=== PATIENT | female | born 1970 | race American Indian/Alaskan Native ===

== ENCOUNTER 2017-01-12 13:06 | Emergency (ER) | payer MEDICARE ==
[2017-01-12 14:24] LABS: Urine Drugs of Abuse Note Disclamer
[2017-01-12 14:25] LABS: Anion Gap 18 mmol/L; BUN/Creatinine Ratio 18.57; Blood Urea Nitrogen 13 mg/dL (7-17); Carbon Dioxide 24 mmol/L (22-30); Chloride 100.3 mmol/L (98-107); Glucose 96 mg/dL (65-100); Sodium 138 mmol/L (137-145)
[2017-01-12 14:28] LABS: Basophils % (Auto) 0.7 % (0.0-1.8); Eosinophils % (Auto) 1.4 % (0.0-4.3); Hematocrit 26.9 % (30.3-42.9); Hemoglobin 8.5 gm/dl (10.1-14.3); Mean Corpuscular HGB Conc 32 % (30-34); Mean Corpuscular Hemoglobin 23 pg (28-32); Mean Corpuscular Volume 71 fl (79-97); Platelet Count 364 K/mm3 (140-440); Red Blood Count 3.77 M/mm3 (3.65-5.03); Red Cell Distribution Width 20.2 % (13.2-15.2); White Blood Count 6.2 K/mm3 (4.5-11.0)
[2017-01-12 14:38] LABS: Bilirubin,Urine NEG (Negative); Blood,Urine NEG (Negative); Ketones,Urine NEG (Negative); Leukocyte Esterase,Urine NEG (Negative); Mucus,Urine FEW /HPF; Nitrite,Urine NEG (Negative); Protein,Urine <15 mg/dL mg/dL (Negative); Urobilinogen,Urine < 2.0 mg/dL (<2.0)
[2017-01-12] MEDS ORDERED: COLACE PO ONE (23:30)
[2017-01-13] MEDS: FEOSOL PO SCH ×2 (00:04→10:22)
--- NOTE | 2017-01-13 04:17 | Emergency Department Report ---
ED Psych HPI - General Chief Complaint: Psych Stated Complaint: MH EVAL/NOT TAKING MEDS Time Seen by Provider: 01/12/17 21:06 Source: patient Mode of arrival: Ambulatory Limitations: Other (mental disorder) - History of Present Illness Initial Comments: 36 year old female with a past medical history of schizophrenia, seizures, and hypertension presents to Hospital complaints of uncooperative behavior. Patient is in the presence of her retail personal banker at the [facility]. She was released from [facility] December 28. Since she has been refusing to take her medication, curative things, and defecating on herself. No physical complaints reported. Patient denies suicidal or homicidal ideation. - Related Data Home Medications Medication Instructions Recorded Confirmed Last Taken Amantadine [Symmetrel] 100 mg PO BID 01/12/17 01/12/17 Unknown Divalproex Sodium [Divalproex 500 mg PO BID 01/12/17 01/12/17 Unknown Sodium ER] Hydrochlorothiazide [HCTZ] 25 mg PO QDAY 01/12/17 01/12/17 Unknown Olanzapine [ZyPREXA] 15 mg PO BID 01/12/17 01/12/17 Unknown Allergies Allergy/AdvReac Type Severity Reaction Status Date / Time Beef Containing Products Allergy Vomiting Verified 12/10/15 19:38 latex Allergy Swelling Verified 12/10/15 19:38 Penicillins Allergy Unknown Verified 12/10/15 19:38 ED Review of Systems ROS: Stated complaint: MH EVAL/NOT TAKING MEDS Other details as noted in HPI Comment: All other systems reviewed and negative Other: Constitutional: No fevers chills Eyes: No eye pain visual changes ENT: No ear pain or throat pain Neck: Denies pain Respiratory: Denies cough wheezing shortness of breath Cardiovascular: Denies chest pain, palpitations, syncope GI: Denies abdominal pain, nausea, vomiting, diarrhea : Denies dysuria Musculoskeletal: no joint swelling Skin: Denies rash, lesions, erythema Neurologic: Denies headache, numbness, weakness ED Past Medical Hx - Past Medical History Hx Hypertension: Yes Hx Seizures: Yes Hx Psychiatric Treatment: Yes (schizophrenia) - Surgical History Additional Surgical History: gastrobypass - Social History Smoking Status: Current Every Day Smoker Substance Use Type: Alcohol - Medications Home Medications: Home Medications Medication Instructions Recorded Confirmed Last Taken Type Amantadine [Symmetrel] 100 mg PO BID 01/12/17 01/12/17 Unknown History Divalproex Sodium [Divalproex 500 mg PO BID 01/12/17 01/12/17 Unknown History Sodium ER] Hydrochlorothiazide [HCTZ] 25 mg PO QDAY 01/12/17 01/12/17 Unknown History Olanzapine [ZyPREXA] 15 mg PO BID 01/12/17 01/12/17 Unknown History ED Physical Exam - General Limitations: No Limitations - Other Other exam information: General: No limitations, patient is alert in no acute distress Head exam: Atraumatic, normocephalic Eyes exam: Normal appearance, pupils equal reactive to light, extraocular movements intact ENT: Moist mucous membrane, normal oropharynx Neck exam: Normal inspection, full range of motion, no meningismus nontender Respiratory exam: Clear to auscultation bilateral, no wheezes, rales, crackles Cardiovascular: Normal rate and rhythm, normal heart sounds Abdomen: Soft, nondistended, and nontender, with normal bowel sounds, no rebound, or guarding Extremity: Full range of motion normal inspection no deformity Back: Normal Inspection, full range of motion, no tenderness Neurologic: Alert, oriented x3, cranial nerves intact, no motor or sensory deficit Psychiatric: normal affect, normal mood Skin: Warm, dry, intact ED Course Vital Signs 01/12/17 01/12/17 13:45 21:26 Temperature 99 F 98.8 F Pulse Rate 123 H 99 H Respiratory 20 20 Rate Blood Pressure 125/80 Blood Pressure 159/90 [Left] O2 Sat by Pulse 99 98 Oximetry - Reevaluation(s) Reevaluation #1: 01/13/17 Repeat heart rate improved ED Medical Decision Making - Lab Data Result diagrams: 01/12/17 13:52 01/12/17 13:52 Lab Results 01/12/17 01/12/17 01/12/17 Range/Units 13:52 13:52 13:52 WBC 6.2 (4.5-11.0) K/mm3 RBC 3.77 (3.65-5.03) M/mm3 Hgb 8.5 L (10.1-14.3) gm/dl Hct 26.9 L (30.3-42.9) % MCV 71 L (79-97) fl MCH 23 L (28-32) pg MCHC 32 (30-34) % RDW 20.2 H (13.2-15.2) % Plt Count 364 (140-440) K/mm3 Lymph % (Auto) 20.7 (13.4-35.0) % Divide % (Auto) 12.1 H (0.0-7.3) % Eos % (Auto) 1.4 (0.0-4.3) % Baso % (Auto) 0.7 (0.0-1.8) % Lymph # 1.3 (1.2-5.4) K/mm3 Divide # 0.7 (0.0-0.8) K/mm3 Eos # 0.1 (0.0-0.4) K/mm3 Baso # 0.0 (0.0-0.1) K/mm3 Seg Neutrophils % 65.1 (40.0-70.0) % Seg Neutrophils # 4.0 (1.8-7.7) K/mm3 Sodium 138 (137-145) mmol/L Potassium 4.0 (3.6-5.0) mmol/L Chloride 100.3 (98-107) mmol/L Carbon Dioxide 24 (22-30) mmol/L Anion Gap 18 mmol/L BUN 13 (7-17) mg/dL Creatinine 0.7 (0.7-1.2) mg/dL Estimated GFR > 60 ml/min BUN/Creatinine Ratio 18.57 % Glucose 96 (65-100) mg/dL Calcium 9.0 (8.4-10.2) mg/dL Iron (37-170) ug/dL TIBC (250-450) mcg/dL % Saturation % Transferrin (192-382) mg/dl Urine Color (Yellow) Urine Turbidity (Clear) Urine pH (5.0-7.0) Ur Specific Van (1.003-1.030) Urine Protein (Negative) mg/dL Urine Glucose (UA) (Negative) mg/dL Urine Ketones (Negative) mg/dL Urine Blood (Negative) Urine Nitrite (Negative) Urine Bilirubin (Negative) Urine Urobilinogen (<2.0) mg/dL Ur Leukocyte Esterase (Negative) Urine WBC (Auto) (0.0-6.0) /HPF Urine RBC (Auto) (0.0-6.0) /HPF U Epithel Cells (Auto) (0-13.0) /HPF Urine Mucus /HPF Urine Opiates Screen Urine Methadone Screen Ur Barbiturates Screen Ur Phencyclidine Scrn Ur Amphetamines Screen U Benzodiazepines Scrn Urine Cocaine Screen U Marijuana (THC) Screen Drugs of Abuse Note Plasma/Serum Alcohol < 0.01 (0-0.07) gm% 01/12/17 01/12/17 01/12/17 Range/Units 13:52 Unknown Unknown WBC (4.5-11.0) K/mm3 RBC (3.65-5.03) M/mm3 Hgb (10.1-14.3) gm/dl Hct (30.3-42.9) % MCV (79-97) fl MCH (28-32) pg MCHC (30-34) % RDW (13.2-15.2) % Plt Count (140-440) K/mm3 Lymph % (Auto) (13.4-35.0) % Divide % (Auto) (0.0-7.3) % Eos % (Auto) (0.0-4.3) % Baso % (Auto) (0.0-1.8) % Lymph # (1.2-5.4) K/mm3 Divide # (0.0-0.8) K/mm3 Eos # (0.0-0.4) K/mm3 Baso # (0.0-0.1) K/mm3 Seg Neutrophils % (40.0-70.0) % Seg Neutrophils # (1.8-7.7) K/mm3 Sodium (137-145) mmol/L Potassium (3.6-5.0) mmol/L Chloride (98-107) mmol/L Carbon Dioxide (22-30) mmol/L Anion Gap mmol/L BUN (7-17) mg/dL Creatinine (0.7-1.2) mg/dL Estimated GFR ml/min BUN/Creatinine Ratio % Glucose (65-100) mg/dL Calcium (8.4-10.2) mg/dL Iron 16 L (37-170) ug/dL TIBC 487 H (250-450) mcg/dL % Saturation 3.29 % Transferrin 428 H (192-382) mg/dl Urine Color Yellow (Yellow) Urine Turbidity Clear (Clear) Urine pH 5.0 (5.0-7.0) Ur Specific Van 1.014 (1.003-1.030) Urine Protein <15 mg/dl (Negative) mg/dL Urine Glucose (UA) Neg (Negative) mg/dL Urine Ketones Neg (Negative) mg/dL Urine Blood Neg (Negative) Urine Nitrite Neg (Negative) Urine Bilirubin Neg (Negative) Urine Urobilinogen < 2.0 (<2.0) mg/dL Ur Leukocyte Esterase Neg (Negative) Urine WBC (Auto) 1.0 (0.0-6.0) /HPF Urine RBC (Auto) 5.0 (0.0-6.0) /HPF U Epithel Cells (Auto) 2.0 (0-13.0) /HPF Urine Mucus Few /HPF Urine Opiates Screen Presumptive negative Urine Methadone Screen Presumptive negative Ur Barbiturates Screen Presumptive negative Ur Phencyclidine Scrn Presumptive negative Ur Amphetamines Screen Presumptive negative U Benzodiazepines Scrn Presumptive negative Urine Cocaine Screen Presumptive negative U Marijuana (THC) Screen Presumptive negative Drugs of Abuse Note Disclamer Plasma/Serum Alcohol (0-0.07) gm% - Medical Decision Making 1013 and transfer forms have been signed. Patient medically clear for psychiatric transfer. Her current medications be continued. Patient also has iron deficiency anemia and iron tablets for Colace have been initiated. H&H is stable compared to previous. - Differential Diagnosis psychosis, schizophrenia, medication noncompliance Critical Care Time: No Critical care attestation.: If time is entered above; I have spent that time in minutes in the direct care of this critically ill patient, excluding procedure time. ED Disposition Clinical Impression: Schizophrenia, Noncompliance with medication regimen, Medical clearance for psychiatric admission, Iron deficiency anemia Disposition: DC/TX-65 PSY HOSP/PSY UNIT Is pt being admited?: No Condition: Stable Time of Disposition: 04:53 (awaiting acceptance)
[2017-01-13] MEDS: HCTZ PO SCH (10:22)
[2017-01-13] MEDS: TYLENOL PO PRN (10:22)
[2017-01-13] MEDS: SYMMETREL PO SCH ×2 (13:24→23:11)
--- NOTE | 2017-01-13 16:29 | Consultation ---
History of Present Illness - Reason for Consult Consult date: 01/13/17 Reason for consult: psychiatric evaluation, psychosis - Chief Complaint Chief complaint: "I want something else [to eat]" 36 year old female with a past medical history of schizophrenia, seizures, and hypertension presented to the ER with complaints of uncooperative behavior. She lives in a [facility] and has been non compliant with medication and displaying signs of psychosis. She was released from [facility] December 28. Since she has been refusing to take her medication, pacing, displaying disorganized thoughts/behavior, and defecating on herself. She is indifferent on interview. No physical complaints reported. Patient denies suicidal or homicidal ideation. Medications and Allergies Allergies Allergy/AdvReac Type Severity Reaction Status Date / Time Beef Containing Products Allergy Vomiting Verified 12/10/15 19:38 latex Allergy Swelling Verified 12/10/15 19:38 Penicillins Allergy Unknown Verified 12/10/15 19:38 Home Medications Medication Instructions Recorded Confirmed Last Taken Type Amantadine [Symmetrel] 100 mg PO BID 01/12/17 01/12/17 Unknown History Divalproex Sodium [Divalproex 500 mg PO BID 01/12/17 01/12/17 Unknown History Sodium ER] Hydrochlorothiazide [HCTZ] 25 mg PO QDAY 01/12/17 01/12/17 Unknown History Olanzapine [ZyPREXA] 15 mg PO BID 01/12/17 01/12/17 Unknown History Active Meds: Active Medications Acetaminophen (Tylenol) 650 mg PO Q4HR PRN PRN Reason: Pain MILD(1-3)/Fever >100.5/ARRIOLA Last Admin: 01/13/17 10:22 Dose: 650 mg Amantadine HCl (Symmetrel) 100 mg PO BID [facility] Last Admin: 01/13/17 13:24 Dose: Not Given Divalproex Sodium (Depakote Er) 500 mg PO BID [facility] Last Admin: 01/13/17 10:22 Dose: Not Given Ferrous Sulfate (Feosol) 325 mg PO DAILY [facility] Last Admin: 01/13/17 10:22 Dose: 325 mg Hydrochlorothiazide (Hctz) 25 mg PO QDAY [facility] Last Admin: 01/13/17 10:22 Dose: 25 mg Olanzapine (Zyprexa) 15 mg PO BID [facility] Last Admin: 01/13/17 13:25 Dose: Not Given Past psychiatric history - Past Medical History Past Medical History: hypertension, seizures Past Surgical History: Other (gastric bypass per the record) - past Psychiatric treatment and history Psych: Schizophrenia psychiatric treatment history: home medications: zyprexa 15mg bid and depakote - Social History Social history: other (denies alcohol or illicit substance use) Mental Status Exam - Vital signs Last Vital Signs Temp 98.9 F 01/13/17 07:35 Pulse 96 H 01/13/17 07:35 Resp 18 01/13/17 10:22 BP 147/91 01/13/17 07:35 Pulse Ox 100 01/13/17 07:35 Results Result Diagrams: 01/12/17 13:52 01/12/17 13:52 Abnormal lab results 01/12/17 Range/Units 13:52 Iron 16 L (37-170) ug/dL TIBC 487 H (250-450) mcg/dL Transferrin 428 H (192-382) mg/dl All other labs normal. Assessment and Plan Assessment and plan: Mental Status Exam: Narrative exam: Patient indifferent and not fully cooperative on interview Orientation: person, place Affect: flat Mood: unknown Thought content: no SI or HI Thought process: disorganized Perceptions: responding to internal stimuli Speech: minimal response Level of consciousness: alert Psychomotor activity: pacing Interaction: uncooperative Impression: Psychosis Schizophrenia, unspecified type Differential diagnosis: schizoaffective disorder, bipolar disorder Recommendation: Reevaluate in one day to determine if patient is cooperative and can provide more information about the presenting complaint and psychiatric history. [address] No changes in care recommended at this time. Her home medications have been restarted by the ER physician. Zyprexa 15mg bid and Depakote 500mg bid She would benefit from a long acting antipsychotic
[2017-01-14] MEDS: HCTZ PO SCH (10:39)
[2017-01-14] MEDS: FEOSOL PO SCH (10:39)
[2017-01-14] MEDS: SYMMETREL PO SCH ×2 (10:39→23:59)
[2017-01-14] MEDS ORDERED: GEODON IM ONE ×2 (13:06→13:07)
--- NOTE | 2017-01-14 19:42 | Progress Note ---
Subjective - Reason for Consult Consult date: 01/14/17 Reason for consult: follow up - Chief Complaint Chief complaint: "Do you have a sandwich?" 36 year old female with a past medical history of schizophrenia, seizures, and hypertension presented to the ER with complaints of uncooperative behavior. She lives in a skilled nursing and has been non compliant with medication and displaying signs of psychosis. She was released from [facility] December 28. She continues to have disorganized thought process. She is rocking but states it is because she is hungry. She attributes her hunger to her medication. She is on Zyprexa. She mentioned being on Invega in the past. She stated her medications aren't right but she otherwise does not have insight. She is indifferent on interview. She denies psychotic symptoms but exhibits signs of psychosis. Patient denies suicidal or homicidal ideation. Mental Status Exam - Vital signs Last Vital Signs Temp 98.8 F 01/14/17 09:20 Pulse 70 01/14/17 15:14 Resp 18 01/14/17 15:14 BP 154/80 01/14/17 15:14 Pulse Ox 100 01/14/17 15:14 Assessment and Plan Mental Status Exam: Narrative exam: focused on obtaining a snack Orientation: person, place Affect: flat Mood: unknown Thought content: no SI or HI Thought process: disorganized Perceptions: responding to internal stimuli Speech: minimal response Level of consciousness: alert Psychomotor activity: rocking Interaction: unable to pay attention Impression: Psychosis Schizophrenia, unspecified type Differential diagnosis: schizoaffective disorder, bipolar disorder Recommendation: She is waiting on a bed in a psychiatric facility. [address] No changes in care recommended at this time. Her home medications have been restarted by the ER physician. Zyprexa 15mg bid and Depakote 500mg bid She would benefit from a long acting antipsychotic and a newer atypical antipsychotic to reduce metabolic effects.
[2017-01-14] MEDS: TYLENOL PO PRN (21:47)
[2017-01-15] MEDS: HCTZ PO SCH (10:51)
[2017-01-15] MEDS: SYMMETREL PO SCH ×2 (10:52→22:54)
[2017-01-15] MEDS: FEOSOL PO SCH (11:22)
--- NOTE | 2017-01-15 17:08 | Progress Note ---
Subjective - Reason for Consult Consult date: 01/15/17 Reason for consult: Psychiatry Follow-up - Chief Complaint Chief complaint: "What do you want" 36 year old female with a past medical history of schizophrenia, seizures, and hypertension presented to the ER with complaints of uncooperative behavior. Today patient is calm, but uncooperative during assessment. She was rocking back /forth and talking to herself upon my arrival to her room. When I asked her a question, she stated, "Why are you talking to me." She would pause in the middle of her answers, possibly responding to some type or stimuli. She denies SI/HI's and AVH's. Mental Status Exam - Vital signs Last Vital Signs Temp 98.4 F 01/15/17 09:08 Pulse 76 01/15/17 10:48 Resp 16 01/15/17 10:48 BP 120/61 01/15/17 10:48 Pulse Ox 100 01/15/17 10:48 - Exam Narrative exam: MSE: Appearance: calm, uncooperative Behavior: regular eye contact Speech: regular rate and tone Mood: "why you ask" Affect: labile Thought Process: tangential Thought Content: denies SI/HI's and AVH's, disorganized Motor Activity: lying in bed Cognition: A/Ox 3 Insight: limited Judgment: limited Assessment and Plan Impression: Schizophrenia Unspecified Type. Today patient is calm, but uncooperative during assessment. Recommendation/Plan: Continue 1013 with placement to inpatient psy services. Continue Zyprexa 15 mg PO BID and Depakote 500 mg BID for mood. LFT's ordered.
[2017-01-15 18:22] LABS: Alanine Aminotransferase 9 units/L (7-56); Alkaline Phosphatase 52 units/L (35-129)
[2017-01-16] MEDS: HCTZ PO SCH (09:54)
[2017-01-16] MEDS: SYMMETREL PO SCH ×2 (09:54→22:30)
[2017-01-16] MEDS: FEOSOL PO SCH (09:54)
--- NOTE | 2017-01-16 14:17 | Progress Note ---
Subjective - Reason for Consult Consult date: 01/16/17 Reason for consult: Psychiatry Follow-up - Chief Complaint Chief complaint: "Yes" 36 year old female with a past medical history of schizophrenia, seizures, and hypertension presented to the ER with complaints of uncooperative behavior. Today patient is calm, but again uncooperative during assessment. She stated being in [place] currently. I told her that she was located at [facility], she stated , "You're a liar." She denies SI/HI's and AVH's. Mental Status Exam - Vital signs Last Vital Signs Temp 98.2 F 01/16/17 07:50 Pulse 105 H 01/16/17 07:50 Resp 20 01/16/17 07:50 BP 110/73 01/16/17 07:50 Pulse Ox 100 01/16/17 07:50 - Exam Narrative exam: MSE: Appearance: calm, uncooperative Behavior: regular eye contact Speech: regular rate and tone Mood: "okay today" Affect: labile Thought Process: tangential Thought Content: denies SI/HI's and AVH's, disorganized Motor Activity: lying in bed Cognition: A/Ox 3 Insight: limited Judgment: limited Assessment and Plan Impression: Schizophrenia Unspecified Type. Today patient is calm, but uncooperative again today during assessment. She denies SI/HI's. Recommendation/Plan: Continue 1013 with placement to inpatient psy services. Continue Zyprexa 15 mg PO BID and Depakote 500 mg BID for mood. VA serum level in the AM.
[2017-01-17] MEDS: FEOSOL PO SCH (10:49)
[2017-01-17] MEDS: SYMMETREL PO SCH ×2 (10:49→22:05)
[2017-01-17] MEDS: HCTZ PO SCH (11:03)
--- NOTE | 2017-01-17 14:12 | Progress Note ---
Subjective - Reason for Consult Consult date: 01/17/17 Reason for consult: follow up - Chief Complaint Chief complaint: "The medicine makes me sluggish" 36 year old female with a past medical history of schizophrenia, seizures, and hypertension presented to the ER with complaints of uncooperative behavior. Today patient is calm, and minimally cooperative in assessment. She is rocking and appears preoccupied. She reports one of the medications makes her feel sluggish. She denies SI/HI's and AVH's. Mental Status Exam - Vital signs Last Vital Signs Temp 98.0 F 01/17/17 08:33 Pulse 60 01/17/17 08:33 Resp 18 01/17/17 08:33 BP 118/69 01/17/17 08:33 Pulse Ox 98 01/17/17 08:33 Assessment and Plan Mental Status Exam: Narrative exam: Orientation: person, place Affect: flat Mood: unknown Thought content: no SI or HI Thought process: disorganized Perceptions: would not discuss perceptual disturbances. appears preoccupied Speech: minimal response Level of consciousness: alert Psychomotor activity: rocking Interaction: unable to pay attention Depakote level <2.8 Impression: Psychosis Schizophrenia, unspecified type Differential diagnosis: schizoaffective disorder, bipolar disorder Recommendation: She is waiting on a bed in a psychiatric facility. [address] No changes in care recommended at this time. Her home medications have been restarted by the ER physician. Zyprexa 15mg bid and Depakote 500mg bid She would benefit from a long acting antipsychotic and a newer atypical antipsychotic to reduce metabolic effects.
[2017-01-17 18:46] VITALS: BP 128/76
== END 2017-01-17 22:25 ==
LOC: EEVIPCON 13:06 → ED 13:06
DX: F20.9 Schizophrenia, unspecified (principal); D50.9 Iron deficiency anemia, unspecified; Z91.14 Patient's other noncompliance with medication regimen; I10 Essential (primary) hypertension; F17.200 Nicotine dependence, unspecified, uncomplicated; Z88.0 Allergy status to penicillin; Z91.040 Latex allergy status; Z91.018 Allergy to other foods
CPT/HCPCS: 36415; 80048; 80164; 80307; 81001; 83550; 84075; 84450; 84460; 84703; 85025; 96372; 99285; G0480; J3486; 80320

== ENCOUNTER 2018-01-31 14:21 | Emergency (ER) | payer MEDICARE ==
[2018-01-31 14:44] VITALS: BP 130/91
--- NOTE | 2018-01-31 14:59 | Emergency Department Report ---
Blank Doc - Documentation Documentation: Patient is a 47-year-old female who is here with her caregiver. Patient states that blood work was t several days ago that showed a hemoglobin 7.6. Patient doesn't history of heavy menstrual period patient just feels fatigued and denies chest pain shortness of breath at this time. Patient has had heavy irregular menses since September 2017. Before that September the patient actually had several months where she had no menstrual period. Hemoglobin rechecked the patient be reassessed
--- NOTE | 2018-01-31 15:55 | Emergency Department Report ---
ED General Adult HPI - General Chief complaint: Medical Clearance Stated complaint: BLOOD TRANSFUSION Time Seen by Provider: 01/31/18 14:50 Source: patient Mode of arrival: Ambulatory Limitations: No Limitations - History of Present Illness Initial comments: Patient is a 47-year-old female. Patient states that blood work was several days ago that showed a hemoglobin 7.6. Patient doesn't history of heavy menstrual period patient just feels fatigued and denies chest pain shortness of breath at this time. Patient has had heavy irregular menses since September 2017. Before that September the patient actually had several months where she had no menstrual period. Her primary care who [place] for possible blood transfusion. Patient denies any abdominal pain or difficulty breathing. Lab work was done 2 days ago. Last menstrual period was 11/24/2015 and patient says she is perimenopausal. Patient is not on any iron medication and she is not having any urinary symptoms. She said Dr. Izaguirre did a test on her and it was negative. MD Complaint: sent by Dr. Izaguirre for possible blood transfusion for low hemoglobin of 7.6. Onset/Timin -: days(s) Severity scale (0 -10): 0 Associated Symptoms: denies other symptoms Treatments Prior to Arrival: none - Related Data Home Medications Medication Instructions Recorded Confirmed Last Taken Amantadine [Symmetrel] 100 mg PO BID 01/12/17 01/12/17 Unknown Divalproex Sodium [Divalproex 500 mg PO BID 01/12/17 01/12/17 Unknown Sodium ER] Hydrochlorothiazide [HCTZ] 25 mg PO QDAY 01/12/17 01/12/17 Unknown Olanzapine [ZyPREXA] 15 mg PO BID 01/12/17 01/12/17 Unknown Previous Rx's Medication Instructions Recorded Last Taken Type Ferrous Sulfate [Slow Fe] 142 mg PO BID 30 Days #60 tablet.er 01/31/18 Unknown Rx Allergies Allergy/AdvReac Type Severity Reaction Status Date / Time latex Allergy Swelling Verified 01/31/18 14:44 Penicillins Allergy Unknown Verified 01/31/18 14:44 ED Review of Systems ROS: Stated complaint: BLOOD TRANSFUSION Other details as noted in HPI Constitutional: denies: chills, fever Eyes: denies: eye pain, eye discharge, vision change ENT: denies: ear pain, throat pain Respiratory: denies: cough, shortness of breath, wheezing Cardiovascular: denies: chest pain, palpitations, dyspnea on exertion, edema, syncope, paroxysmal nocturnal dyspnea Endocrine: no symptoms reported Gastrointestinal: denies: abdominal pain, nausea, diarrhea Genitourinary: denies: urgency, dysuria, discharge Musculoskeletal: denies: back pain, joint swelling, arthralgia Skin: denies: rash, lesions Neurological: denies: headache, weakness, paresthesias Psychiatric: denies: anxiety, depression Hematological/Lymphatic: denies: easy bleeding, easy bruising ED Past Medical Hx - Past Medical History Previous Medical History?: Yes Hx Hypertension: Yes Hx Seizures: Yes Hx Psychiatric Treatment: Yes (schizophrenia) - Surgical History Past Surgical History?: Yes Additional Surgical History: gastrobypass - Family History Family history: hypertension - Social History Smoking Status: Never Smoker Substance Use Type: None - Medications Home Medications: Home Medications Medication Instructions Recorded Confirmed Last Taken Type Amantadine [Symmetrel] 100 mg PO BID 01/12/17 01/12/17 Unknown History Divalproex Sodium [Divalproex 500 mg PO BID 01/12/17 01/12/17 Unknown History Sodium ER] Hydrochlorothiazide [HCTZ] 25 mg PO QDAY 01/12/17 01/12/17 Unknown History Olanzapine [ZyPREXA] 15 mg PO BID 01/12/17 01/12/17 Unknown History Ferrous Sulfate [Slow Fe] 142 mg PO BID 30 Days #60 tablet.er 01/31/18 Unknown Rx ED Physical Exam - General Limitations: No Limitations General appearance: alert, in no apparent distress - Head Head exam: Present: atraumatic, normocephalic, normal inspection - Eye Eye exam: Present: normal appearance, PERRL, EOMI Pupils: Present: normal accommodation - ENT ENT exam: Present: normal exam, normal orophraynx, mucous membranes moist, TM's normal bilaterally, normal external ear exam - Neck Neck exam: Present: normal inspection, full ROM. Absent: tenderness, lymphadenopathy - Respiratory Respiratory exam: Present: normal lung sounds bilaterally. Absent: respiratory distress, chest wall tenderness - Cardiovascular Cardiovascular Exam: Present: regular rate, normal rhythm, normal heart sounds, gallop. Absent: systolic murmur, diastolic murmur - GI/Abdominal GI/Abdominal exam: Present: soft, normal bowel sounds. Absent: distended, tenderness, guarding, rebound, rigid, organomegaly, mass - Extremities Exam Extremities exam: Present: normal inspection, full ROM, normal capillary refill , other (No cce. + 2 pulses in all extremities, no neurovascular compromise). Absent: tenderness, pedal edema, joint swelling, calf tenderness - Back Exam Back exam: Present: normal inspection, full ROM, other (ambulates without any difficulties). Absent: tenderness, CVA tenderness (R), CVA tenderness (L), muscle spasm, paraspinal tenderness, vertebral tenderness, rash noted - Neurological Exam Neurological exam: Present: alert, oriented X3, normal gait - Psychiatric Psychiatric exam: Present: normal affect, normal mood - Skin Skin exam: Present: warm, dry, intact, normal color. Absent: rash ED Course Vital Signs 01/31/18 14:41 Temperature 98.2 F Pulse Rate 83 Respiratory 16 Rate Blood Pressure 130/91 O2 Sat by Pulse 100 Oximetry - Reevaluation(s) Reevaluation #1: 01/31/18 19:01 CBC came back with H&H is better and greater than 7.6. Patient does not need to be transfused. I discussed this with patient ED Medical Decision Making - Lab Data Result diagrams: 01/31/18 17:25 01/31/18 15:33 Lab Results 01/31/18 01/31/18 01/31/18 Range/Units 15:33 17:20 17:25 WBC 4.8 (4.5-11.0) K/mm3 RBC 3.28 L (3.65-5.03) M/mm3 Hgb 8.2 L (10.1-14.3) gm/dl Hct 25.9 L (30.3-42.9) % MCV 79 (79-97) fl MCH 25 L (28-32) pg MCHC 32 (30-34) % RDW 19.1 H (13.2-15.2) % Plt Count 217 (140-440) K/mm3 Lymph % (Auto) 33.7 (13.4-35.0) % [place] % (Auto) 11.6 H (0.0-7.3) % Eos % (Auto) 2.2 (0.0-4.3) % Baso % (Auto) 1.1 (0.0-1.8) % Lymph # 1.6 (1.2-5.4) K/mm3 [place] # 0.6 (0.0-0.8) K/mm3 Eos # 0.1 (0.0-0.4) K/mm3 Baso # 0.1 (0.0-0.1) K/mm3 Seg Neutrophils % 51.4 (40.0-70.0) % Seg Neutrophils # 2.5 (1.8-7.7) K/mm3 Sodium 144 (137-145) mmol/L Potassium 4.5 (3.6-5.0) mmol/L Chloride 107.2 H (98-107) mmol/L Carbon Dioxide 28 (22-30) mmol/L Anion Gap 13 mmol/L BUN 8 (7-17) mg/dL Creatinine 0.7 (0.7-1.2) mg/dL Estimated GFR > 60 ml/min BUN/Creatinine Ratio 11 % Glucose 70 (65-100) mg/dL Calcium 8.4 (8.4-10.2) mg/dL Total Bilirubin < 0.20 (0.1-1.2) mg/dL AST 10 (5-40) units/L ALT < 5 L (7-56) units/L Alkaline Phosphatase 54 (35-129) units/L Total Protein 6.7 (6.3-8.2) g/dL Albumin 3.4 L (3.9-5) g/dL Albumin/Globulin Ratio 1.0 % Blood Type O POSITIVE Antibody Screen Negative - Medical Decision Making This is a 47-year-old female that was sent by Dr. Jovanny Izaguirre's office for possible blood changes usually because she had CBC done and her hemoglobin was at 7.6 2 days ago. Patient denies any chest pain shortness of breath. She is asymptomatic I saw and examined the patient and her physical exam is normal. She ambulates without any difficulty in breathing and. CBC done and her H&H is 8.2 and 25. Hemoglobin is greater than it was 2 days ago. Chemistries normal and type and screen done and stable. I discussed this with patient and she remains asymptomatic throughout ED stay. I discussed diagnosis and treatment plan and she agrees with being sent home with iron pill and to follow-up with Dr. Jovanny Izaguirre tomorrow. Anemia unknown cause-H&H is 8.2 and 25 it is better than it was 2 days ago. Be placed on Slow Fe twice a day and to follow up with her primary care physician tomorrow. Patient discharged home in stable condition. Her vital signs are stable she is afebrile. Discharged home to follow-up with Dr. Jovanny Izaguirre tomorrow and she voiced understanding. She is given a prescription for Slow Fe. Critical care attestation.: If time is entered above; I have spent that time in minutes in the direct care of this critically ill patient, excluding procedure time. ED Disposition Clinical Impression: Anemia Qualifiers: Anemia type: unspecified type Qualified Code(s): D64.9 - Anemia, unspecified Disposition: TO HOME OR SELFCARE Is pt being admited?: No Does the pt Need Aspirin: No Condition: Stable Instructions: Anemia (ED), Iron Rich Diet (ED) Additional Instructions: Please follow-up with your primary care physician tomorrow. See Discharge instructions on anemia and foods rich and iron Take Slow Fe as prescribed He developed bleeding in, dizziness, shortness of breath and her chest pain please return to the emergency room ALY Prescriptions: Ferrous Sulfate [Slow Fe] 142 mg PO BID 30 Days #60 tablet.er Referrals: JOVANNY IZAGUIRRE MD [Staff Physician] - 02/01/18 Forms: Work/School Release Form(ED)
[2018-01-31 16:13] LABS: Albumin 3.4 g/dL (3.9-5); BUN/Creatinine Ratio 11; Blood Urea Nitrogen 8 mg/dL (7-17); Calcium 8.4 mg/dL (8.4-10.2); Hemolysis Index 1
[2018-01-31 16:23] LABS: Alanine Aminotransferase < 5 units/L (7-56)
[2018-01-31 17:42] LABS: Basophils # (Auto) 0.1 K/mm3 (0.0-0.1); Basophils % (Auto) 1.1 % (0.0-1.8); Eosinophils # (Auto) 0.1 K/mm3 (0.0-0.4); Eosinophils % (Auto) 2.2 % (0.0-4.3); Hematocrit 25.9 % (30.3-42.9); Hemoglobin 8.2 gm/dl (10.1-14.3); Lymphocytes # (Auto) 1.6 K/mm3 (1.2-5.4); Lymphocytes % (Auto) 33.7 % (13.4-35.0); Mean Corpuscular HGB Conc 32 % (30-34); Mean Corpuscular Volume 79 fl (79-97); Monocytes # (Auto) 0.6 K/mm3 (0.0-0.8); Monocytes % (Auto) 11.6 % (0.0-7.3); Platelet Count 217 K/mm3 (140-440); Red Blood Count 3.28 M/mm3 (3.65-5.03); Red Cell Distribution Width 19.1 % (13.2-15.2)
[2018-01-31 17:43] LABS: Mean Corpuscular Hemoglobin 25 pg (28-32)
== END 2018-01-31 19:21 | disposition home or self-care (01) ==
LOC: ED 14:21
DX: D64.9 Anemia, unspecified (principal); I10 Essential (primary) hypertension; F20.9 Schizophrenia, unspecified; Z88.0 Allergy status to penicillin; Z91.040 Latex allergy status
CPT/HCPCS: 36415; 80053; 85025; 86850; 86900; 86901; 99283

== ENCOUNTER 2018-08-16 14:47 | Emergency (ER) | payer MEDICARE ==
--- NOTE | 2018-08-16 14:52 | Emergency Department Report ---
Chief Complaint: Chest Pain Stated Complaint: CHEST PAIN - HPI History of Present Illness: r sided chest pain HR 111 this AM no sob pain worse with deep breathing pmh htn valve disease rx bp meds cig no etoh no drugs poor informant denies psych hx denies psych meds ABC intact VSS No life threat identified MSE screening note: Focused history and physical exam performed. Due to findings the following was ordered: ED Disposition for MSE Condition: Stable
[2018-08-16 15:42] LABS: Basophils # (Auto) 0.1 K/mm3 (0.0-0.1); Basophils % (Auto) 0.7 % (0.0-1.8); Eosinophils # (Auto) 0.4 K/mm3 (0.0-0.4); Eosinophils % (Auto) 5.4 % (0.0-4.3); Hematocrit 27.3 % (30.3-42.9); Hemoglobin 8.9 gm/dl (10.1-14.3); Lymphocytes % (Auto) 26.7 % (13.4-35.0); Mean Corpuscular HGB Conc 33 % (30-34); Mean Corpuscular Volume 72 fl (79-97); Monocytes # (Auto) 0.5 K/mm3 (0.0-0.8); Platelet Count 414 K/mm3 (140-440); Red Blood Count 3.78 M/mm3 (3.65-5.03)
[2018-08-16 15:46] LABS: Red Cell Distribution Width 22.6 % (13.2-15.2)
[2018-08-16 16:01] LABS: Alanine Aminotransferase 19 units/L (7-56); Albumin 3.9 g/dL (3.9-5); BUN/Creatinine Ratio 8; Blood Urea Nitrogen 6 mg/dL (7-17); Calcium 8.9 mg/dL (8.4-10.2); Hemolysis Index 13
[2018-08-16 20:55] LABS: Bilirubin,Urine NEG (Negative); Blood,Urine NEG (Negative); Color,Urine Yellow (Yellow); Protein,Urine <15 mg/dL mg/dL (Negative); RBC,Urine < 1.0 /HPF (0.0-6.0); WBC,Urine < 1.0 /HPF (0.0-6.0)
[2018-08-16 21:06] LABS: Amphetamine Screen,Urine PRESUMPTIVE NEGATIVE; Benzodiazepines Screen,Urine PRESUMPTIVE NEGATIVE; Cannabinoid Screen,Urine PRESUMPTIVE NEGATIVE; Cocaine Screen,Urine PRESUMPTIVE NEGATIVE; Methadone Screen,Urine PRESUMPTIVE NEGATIVE; Opiate Screen,Urine PRESUMPTIVE NEGATIVE
--- NOTE | 2018-08-16 22:49 | Emergency Department Report ---
ED General Adult HPI - General Chief complaint: Chest Pain Stated complaint: CHEST PAIN Time Seen by Provider: 08/16/18 14:56 Source: patient Mode of arrival: Ambulatory Limitations: No Limitations - History of Present Illness Initial comments: This year after [place] female who presents with chest pain intermittent last episode started one hour ago described as 7/10 right anterior chest wall there is no diaphoresis no nausea vomiting no back pain or shortness of breath pain is exacerbated by deep breathing pain is relieved by nothing patient has history of anemia, hypertension, seizures and paranoid schizophrenia symptoms are exacerbated by activity symptoms are relieved by rest, pt denies cp at this time. Onset/Timin -: hour(s) Location: chest Radiation: extremity (right arm ) Severity scale (0 -10): 10 Quality: aching (.) Consistency: intermittent Improves with: rest Associated Symptoms: chest pain. denies: cough, fever/chills, headaches, loss of appetite, malaise, nausea/vomiting, rash, seizure, shortness of breath, syncope, weakness Treatments Prior to Arrival: none - Related Data Home Medications Medication Instructions Recorded Confirmed Last Taken Amantadine [Symmetrel] 100 mg PO BID 01/12/17 01/12/17 Unknown Divalproex Sodium [Divalproex 500 mg PO BID 01/12/17 01/12/17 Unknown Sodium ER] Olanzapine [ZyPREXA] 15 mg PO BID 01/12/17 01/12/17 Unknown hydroCHLOROthiazide [HCTZ] 25 mg PO QDAY 01/12/17 01/12/17 Unknown Previous Rx's Medication Instructions Recorded Last Taken Type Ferrous Sulfate [Slow Fe] 142 mg PO BID 30 Days #60 tablet.er 01/31/18 Unknown Rx Famotidine [Pepcid] 20 mg PO BID #60 tablet 08/17/18 Unknown Rx Naproxen 500 mg PO BID PRN #30 tablet 08/17/18 Unknown Rx Allergies Allergy/AdvReac Type Severity Reaction Status Date / Time latex Allergy Swelling Verified 08/16/18 14:48 Penicillins Allergy Unknown Verified 08/16/18 14:48 ED Review of Systems ROS: Stated complaint: CHEST PAIN Other details as noted in HPI Constitutional: denies: chills, fever Eyes: denies: eye pain, eye discharge, vision change ENT: denies: ear pain, throat pain Respiratory: no symptoms reported. denies: cough, shortness of breath, wheezing Cardiovascular: chest pain ( rapid strep). denies: palpitations, edema, syncope, paroxysmal nocturnal dyspnea Endocrine: no symptoms reported (R) Gastrointestinal: denies: abdominal pain, nausea, diarrhea Genitourinary: denies: urgency, dysuria, discharge Musculoskeletal: denies: back pain, joint swelling, arthralgia Skin: denies: rash, lesions Neurological: denies: headache, weakness, paresthesias Psychiatric: denies: anxiety, depression Hematological/Lymphatic: denies: easy bleeding, easy bruising ED Past Medical Hx - Past Medical History Hx Hypertension: Yes Hx Seizures: Yes Hx Psychiatric Treatment: Yes (schizophrenia) - Surgical History Additional Surgical History: gastrobypass - Social History Smoking Status: Current Some Day Smoker - Medications Home Medications: Home Medications Medication Instructions Recorded Confirmed Last Taken Type Amantadine [Symmetrel] 100 mg PO BID 01/12/17 01/12/17 Unknown History Divalproex Sodium [Divalproex 500 mg PO BID 01/12/17 01/12/17 Unknown History Sodium ER] Olanzapine [ZyPREXA] 15 mg PO BID 01/12/17 01/12/17 Unknown History hydroCHLOROthiazide [HCTZ] 25 mg PO QDAY 01/12/17 01/12/17 Unknown History Ferrous Sulfate [Slow Fe] 142 mg PO BID 30 Days #60 tablet.er 01/31/18 Unknown Rx Famotidine [Pepcid] 20 mg PO BID #60 tablet 08/17/18 Unknown Rx Naproxen 500 mg PO BID PRN #30 tablet 08/17/18 Unknown Rx ED Physical Exam - General Limitations: No Limitations General appearance: alert, in no apparent distress - Head Head exam: Present: atraumatic, normocephalic - Eye Eye exam: Present: normal appearance (R a), PERRL, EOMI - ENT ENT exam: Present: mucous membranes moist - Neck Neck exam: Present: normal inspection, full ROM. Absent: lymphadenopathy, thyromegaly ( and 1) - Respiratory Respiratory exam: Present: normal lung sounds bilaterally (ureter underwent), chest wall tenderness (right anterior lateral cheste wall tenderness no stepoff no crepitus no deformity ). Absent: respiratory distress, wheezes, stridor - Cardiovascular Cardiovascular Exam: Present: regular rate, normal rhythm, normal heart sounds (R). Absent: systolic murmur, diastolic murmur, rubs, gallop - Expanded Cardiovascular Exam Expanded Peripheral pulses: 2+: Carotid (R), Carotid (L), Radial (R), Radial (L), Dorsalis Pedis (R), Dorsalis Pedis (L) - GI/Abdominal GI/Abdominal exam: Present: soft, normal bowel sounds. Absent: tenderness ( no), bruit, hernia ( moist) - Rectal Rectal exam: Present: deferred - Extremities Exam Extremities exam: Present: normal inspection - Back Exam Back exam: Present: normal inspection, full ROM. Absent: tenderness, CVA tenderness (R), CVA tenderness (L) (all), muscle spasm, paraspinal tenderness, rash noted (and) - Neurological Exam Neurological exam: Present: alert, oriented X3 - Psychiatric Psychiatric exam: Present: normal affect, normal mood - Skin Skin exam: Present: warm (N), dry, intact, normal color. Absent: rash ED Course Vital Signs 08/16/18 15:03 Temperature 97.8 F Pulse Rate 97 H Respiratory 20 Rate Blood Pressure 143/86 O2 Sat by Pulse 99 Oximetry ED Medical Decision Making - Lab Data Result diagrams: 08/16/18 15:19 08/16/18 15:19 Labs 08/16/18 08/16/18 08/16/18 15:19 15:19 16:09 WBC 7.4 RBC 3.78 Hgb 8.9 L Hct 27.3 L MCV 72 L MCH 24 L MCHC 33 RDW 22.6 H Plt Count 414 Lymph % (Auto) 26.7 [place] % (Auto) 7.0 Eos % (Auto) 5.4 H Baso % (Auto) 0.7 Lymph # 2.0 [place] # 0.5 Eos # 0.4 Baso # 0.1 Seg Neutrophils % 60.2 Seg Neutrophils # 4.4 D-Dimer 246.76 H Sodium 142 Potassium 4.3 Chloride 106.4 Carbon Dioxide 26 Anion Gap 14 BUN 6 L Creatinine 0.8 Estimated GFR > 60 BUN/Creatinine Ratio 8 Glucose 100 Calcium 8.9 Total Bilirubin < 0.20 AST 30 ALT 19 Alkaline Phosphatase 63 Troponin T < 0.010 Total Protein 8.1 Albumin 3.9 Albumin/Globulin Ratio 0.9 HCG, Qual Urine Color Urine Turbidity Urine pH Ur Specific [place] Urine Protein Urine Glucose (UA) Urine Ketones Urine Blood Urine Nitrite Urine Bilirubin Urine Urobilinogen Ur Leukocyte Esterase Urine WBC (Auto) Urine RBC (Auto) U Epithel Cells (Auto) Urine Opiates Screen Urine Methadone Screen Ur Barbiturates Screen Ur Phencyclidine Scrn Ur Amphetamines Screen U Benzodiazepines Scrn Urine Cocaine Screen U Marijuana (THC) Screen Drugs of Abuse Note 08/16/18 08/16/18 08/16/18 20:27 20:27 21:15 WBC RBC Hgb Hct MCV MCH MCHC RDW Plt Count Lymph % (Auto) [place] % (Auto) Eos % (Auto) Baso % (Auto) Lymph # [place] # Eos # Baso # Seg Neutrophils % Seg Neutrophils # D-Dimer Sodium Potassium Chloride Carbon Dioxide Anion Gap BUN Creatinine Estimated GFR BUN/Creatinine Ratio Glucose Calcium Total Bilirubin AST ALT Alkaline Phosphatase Troponin T Total Protein Albumin Albumin/Globulin Ratio HCG, Qual Negative Urine Color Yellow Urine Turbidity Clear Urine pH 7.0 Ur Specific [place] 1.011 Urine Protein <15 mg/dl Urine Glucose (UA) Neg Urine Ketones Neg Urine Blood Neg Urine Nitrite Neg Urine Bilirubin Neg Urine Urobilinogen 2.0 Ur Leukocyte Esterase Neg Urine WBC (Auto) < 1.0 Urine RBC (Auto) < 1.0 U Epithel Cells (Auto) < 1.0 Urine Opiates Screen Presumptive negative Urine Methadone Screen Presumptive negative Ur Barbiturates Screen Presumptive negative Ur Phencyclidine Scrn Presumptive negative Ur Amphetamines Screen Presumptive negative U Benzodiazepines Scrn Presumptive negative Urine Cocaine Screen Presumptive negative U Marijuana (THC) Screen Presumptive negative Drugs of Abuse Note Disclamer The - EKG Data EKG shows normal: sinus rhythm Rate: normal - EKG Data When compared to previous EKG there are: no significant change (A) Interpretation: normal EKG (ekg interp by ed attending : normal no ecotpy on st elevation tachycardia ) - Radiology Data Radiology results: report reviewed, image reviewed FINDINGS: Heart and pericardium: Normal. Thoracic aorta: Normal. Pulmonary vasculature: There is no evidence of pulmonary arterial emboli. Lymph nodes: No enlarged thoracic lymph nodes. Lungs: The lungs are clear. No infiltrate, effusion or pneumothorax. The central airway is patent. Pleural space: No effusion, thickening, or pneumothorax. Musculoskeletal structures: No significant abnormality. Upper abdominal structures: There is a upper abdominal ventral hernia, within the hernia cavity there is mesenteric fat, a portion of the stomach and a portion of the transverse colon. Patient has had extensive surgery in the gastroesophageal region.. IMPRESSION: There is no evidence of pulmonary arterial emboli. The lungs are clear without infiltrate, effusion or pneumothorax. There is a large upper abdominal wall ventral hernia as described. Previous surgery in the gastroesophageal region is noted. Transcribed By: [facility] Dictated By: MILANA MCWILLIAMS MD Electronically Authenticated By: MILANA MCWILLIAMS MD Signed Date/Time: 08/17/1810 DD/ TD/TT: 08/17/188 - Medical Decision Making CTA is negative for PE normal study abdominal ventral hernia no incarceration, CXR: no infiltrates no opacities , labs are normal heart Square is 1 for diabetes ESTER: 0I, troponin less than 0.01 CMP CBC are normal UAs normal ACG was negative d-dimer 274.6 plan DC home with NSAIDs when necessary pain . Follow with PCP in 2-3 days return to emergency department should symptoms worsen or increase patient verbalized understanding and agreement with same patient will be DC'd home in stable condition at this time. pt verbalized agreement and understanding of discharge plan. Critical care attestation.: If time is entered above; I have spent that time in minutes in the direct care of this critically ill patient, excluding procedure time. ED Disposition Clinical Impression: Chest pain Qualifiers: Chest pain type: unspecified Qualified Code(s): R07.9 - Chest pain, unspecified Ventral hernia Qualifiers: Obstruction and gangrene presence: with obstruction but without gangrene Qu alified Code(s): K43.6 - Other and unspecified ventral hernia with obstruction, without gangrene Disposition: DC-01 TO HOME OR SELFCARE Is pt being admited?: No Does the pt Need Aspirin: No Condition: Stable Instructions: Chest Pain (ED), Ventral Hernia (ED) Prescriptions: Famotidine [Pepcid] 20 mg PO BID #60 tablet Naproxen 500 mg PO BID PRN #30 tablet PRN Reason: Pain , Severe (7-10) Referrals: [facility] [Outside] - 3-5 Days ROSARIO CESAR MD [Staff Physician] - 3-5 Days Forms: Work/School Release Form(ED) Time of Disposition: 02:02
--- NOTE | 2018-08-17 00:11 | Cat Scan Report ---
FINAL REPORT PROCEDURE: CT ANGIO CHEST TECHNIQUE: Computerized tomographic angiography of the chest was performed after the IV injection of iodinated nonionic contrast including image processing. The image data was postprocessed using 2-dim ensional multiplanar reformatted (MPR) and 3-dimensional (MIP and/or volume rendered) techniques. HISTORY: chest pain sob COMPARISON: No prior studies are available for comparison. FINDINGS: Heart and pericardium: Normal. Thoracic aorta: Normal. Pulmonary vasculature: There is no evidence of pulmonary arterial emboli. Lymph nodes: No enlarged thoracic lymph nodes. Lungs: The lungs are clear. No infiltrate, effusion or pneumothorax. The central airway is patent. Pleural space: No effusion, thickening, or pneumothorax. Musculoskeletal structures: No significant abnormality. Upper abdominal structures: There is a upper abdominal ventral hernia, within the hernia cavity there is mesenteric fat, a portion of the stomach and a portion of the transverse colon. Patient has had e xtensive surgery in the gastroesophageal region.. IMPRESSION: There is no evidence of pulmonary arterial emboli. The lungs are clear without infiltrate, effusion o r pneumothorax. There is a large upper abdominal wall ventral hernia as described. Previous surgery in the gastroesop hageal region is noted.
[2018-08-17 02:52] VITALS: BP 118/78
--- NOTE | 2018-08-19 09:43 | XRay Report ---
ROUTINE CHEST, TWO VIEWS: HISTORY: chest pain. This exam is just presented to me for interpretation. The trachea, heart, mediastinal contour, lung cunha and bony thorax are unremarkable. IMPRESSION: Unremarkable chest x-ray.
== END 2018-08-17 02:58 | disposition home or self-care (01) ==
LOC: EDBD → ED 14:47
DX: R07.89 Other chest pain (principal); K43.6 Other and unspecified ventral hernia with obstruction, without gangrene; I10 Essential (primary) hypertension; F20.9 Schizophrenia, unspecified; F17.200 Nicotine dependence, unspecified, uncomplicated; Z88.0 Allergy status to penicillin; Z91.040 Latex allergy status
CPT/HCPCS: 36415; 71046; 71275; 80053; 80307; 81001; 84484; 84703; 85025; 85379; 93005; 93010; 99284; Q9967

== ENCOUNTER 2019-02-05 16:11 | Emergency (ER) | payer MEDICARE ==
--- NOTE | 2019-02-05 16:39 | Emergency Department Report ---
Blank Doc - Documentation Documentation: This is a 49-year-old female that presents wit generalized body aches. This initial assessment/diagnostic orders/clinical plan/treatment(s) is/are subject to change based on patient's health status, clinical progression and re- assessment by fellow clinical providers in the ED. Further treatment and workup at subsequent clinical providers discretion. Patient/guardians urged not to elope from the ED as their condition may be serious if not clinically assessed and managed. Initial orders include: 1- Patient sent to [facility] for further evaluation and treatment. 2- UA 3- labs
[2019-02-05 16:41] VITALS: BP 126/103
[2019-02-05 17:32] LABS: BUN/Creatinine Ratio 10; Blood Urea Nitrogen 8 mg/dL (7-17); Hemolysis Index 80
[2019-02-05 17:42] LABS: Bilirubin,Urine NEG (Negative); Blood,Urine SM (Negative); Color,Urine Yellow (Yellow); Protein,Urine <15 mg/dL mg/dL (Negative)
[2019-02-05 17:50] LABS: Hematocrit 27.7 % (30.3-42.9); Hemoglobin 9.1 gm/dl (10.1-14.3); Mean Corpuscular HGB Conc 33 % (30-34); Mean Corpuscular Volume 78 fl (79-97); Platelet Count 226 K/mm3 (140-440); Red Blood Count 3.54 M/mm3 (3.65-5.03); Red Cell Distribution Width 22.1 % (13.2-15.2)
[2019-02-05] MEDS ORDERED: ASPIRIN PO ONE (19:34)
--- NOTE | 2019-02-05 21:31 | XRay Report ---
CHEST 2 VIEWS INDICATION: chest pain. COMPARISON: 08/16/2018. FINDINGS: Support devices: None. Heart: Borderline heart size. Lungs/Pleura: No acute air space or interstitial disease. No significant pleural effusion. IMPRESSION: Borderline heart size Signer Name: Oneal Myers MD Signed: 02/05/2019 9:27 PM Workstation Name: [id number]
[2019-02-05] MEDS ORDERED: ZANAFLEX PO ONE (22:05)
[2019-02-05] MEDS ORDERED: ULTRAM PO ONE (22:05)
--- NOTE | 2019-02-05 23:50 | Emergency Department Report ---
ED General Adult HPI - General Chief complaint: Extremity Injury, Lower Stated complaint: GENERAL SICKNESS Time Seen by Provider: 02/05/19 16:38 Source: patient Mode of arrival: Ambulatory Limitations: No Limitations - History of Present Illness Initial comments: Patient is a 49-year-old female with a history of seizures presents to the ED with anterior chest pain that radiates to the mid posterior thoracic area for the last 2 hours. Patient also complains of right forearm pain due to a recent fracture that is currently splinted. Patient denies fall, traumatic injury, heavy lifting, shortness of breath, headache, dizziness, diap horesis, nausea, vomiting, headache, abdominal pain, fever or chills and cough. MD Complaint: Anterior chest pain; mid-back pain -: Sudden, hour(s) (2) Location: chest, back Radiation: back Severity scale (0 -10): 3 Quality: aching, sharp Consistency: constant Improves with: none Worsens with: movement Associated Symptoms: denies other symptoms, chest pain. denies: confusion, cough, diaphoresis, fever/chills, headaches, loss of appetite, nausea/vomiting, rash, shortness of breath, syncope, weakness Treatments Prior to Arrival: none - Related Data Home Medications Medication Instructions Recorded Confirmed Last Taken Amantadine [Symmetrel] 100 mg PO BID 01/12/17 01/12/17 Unknown Divalproex Sodium [Divalproex 500 mg PO BID 01/12/17 01/12/17 Unknown Sodium ER] Olanzapine [ZyPREXA] 15 mg PO BID 01/12/17 01/12/17 Unknown hydroCHLOROthiazide [HCTZ] 25 mg PO QDAY 01/12/17 01/12/17 Unknown Previous Rx's Medication Instructions Recorded Last Taken Type Ferrous Sulfate [Slow Fe] 142 mg PO BID 30 Days #60 tablet.er 01/31/18 Unknown R x Famotidine [Pepcid] 20 mg PO BID #60 tablet 08/17/18 Unknown Rx Naproxen 500 mg PO BID PRN #30 tablet 08/17/18 Unknown Rx Acetaminophen/Codeine [Tylenol 1 tab PO Q6H PRN #12 tab 02/05/19 Unknown Rx /Codeine # 3 tab] Naproxen [EC-Naproxen] 500 mg PO Q12H PRN #20 tablet. 02/05/19 Unknown Rx tiZANidine [Zanaflex 4mg TAB] 4 mg PO Q8H PRN #15 tablet 02/05/19 Unknown Rx Allergies Allergy/AdvReac Type Severity Reaction Status Date / Time latex Allergy Swelling Verified 08/16/18 14:48 Penicillins Allergy Unknown Verified 08/16/18 14:48 ED Review of Systems ROS: Stated complaint: GENERAL SICKNESS Other details as noted in HPI Constitutional: denies: chills, fever Eyes: denies: eye pain, eye discharge, vision change ENT: denies: ear pain, throat pain Respiratory: denies: cough, shortness of breath, wheezing Cardiovascular: chest pain. denies: palpitations Endocrine: no symptoms reported Gastrointestinal: denies: abdominal pain, nausea, diarrhea Genitourinary: denies: urgency, dysuria, discharge Musculoskeletal: back pain, arthralgia, myalgia. denies: joint swelling Skin: denies: rash, lesions Neurological: denies: headache, weakness, paresthesias Psychiatric: denies: anxiety, depression Hematological/Lymphatic: denies: easy bleeding, easy bruising ED Past Medical Hx - Past Medical History Previous Medical History?: Yes Hx Hypertension: Yes Hx Seizures: Yes Hx Psychiatric Treatment: Yes (schizophrenia) - Surgical History Past Surgical History?: Yes Additional Surgical History: Gastric bypass - Social History Smoking Status: Current Some Day Smoker Substance Use Type: None - Medications Home Medications: Home Medications Medication Instructions Recorded Confirmed Last Taken Type Amantadine [Symmetrel] 100 mg PO BID 01/12/17 01/12/17 Unknown History Divalproex Sodium [Divalproex 500 mg PO BID 01/12/17 01/12/17 Unknown History Sodium ER] Olanzapine [ZyPREXA] 15 mg PO BID 01/12/17 01/12/17 Unknown History hydroCHLOROthiazide [HCTZ] 25 mg PO QDAY 01/12/17 01/12/17 Unknown History Ferrous Sulfate [Slow Fe] 142 mg PO BID 30 Days #60 tablet.er 01/31/18 Unknown Rx Famotidine [Pepcid] 20 mg PO BID #60 tablet 08/17/18 Unknown Rx Naproxen 500 mg PO BID PRN #30 tablet 08/17/18 Unknown Rx Acetaminophen/Codeine [Tylenol 1 tab PO Q6H PRN #12 tab 02/05/19 Unknown Rx /Codeine # 3 tab] Naproxen [EC-Naproxen] 500 mg PO Q12H PRN #20 tablet. 02/05/19 Unknown Rx tiZANidine [Zanaflex 4mg TAB] 4 mg PO Q8H PRN #15 tablet 02/05/19 Unknown Rx ED Physical Exam - General Limitations: No Limitations General appearance: alert, in no apparent distress - Head Head exam: Present: atraumatic, normocephalic, normal inspection - Eye Eye exam: Present: normal appearance, PERRL, EOMI. Absent: scleral icterus, conjunctival injection, nystagmus Pupils: Present: normal accommodation - ENT ENT exam: Present: normal exam, normal orophraynx, mucous membranes moist, TM's normal bilaterally, normal external ear exam - Neck Neck exam: Present: normal inspection, full ROM - Respiratory Respiratory exam: Present: normal lung sounds bilaterally, chest wall tenderness (Palpable reproducible chest wall tenderness). Absent: respiratory distress, wheezes, rales, accessory muscle use, decreased breath sounds, prolonged expiratory - Cardiovascular Cardiovascular Exam: Present: regular rate, normal rhythm, normal heart sounds. Absent: systolic murmur, diastolic murmur, rubs, gallop - GI/Abdominal GI/Abdominal exam: Present: soft, normal bowel sounds. Absent: tenderness, guarding, rebound, hyperactive bowel sounds, hypoactive bowel sounds, mass - Rectal Rectal exam: Present: deferred - Extremities Exam Extremities exam: Present: normal inspection, full ROM, tenderness (right forearm tenderness, splinted from a recent fracture). Absent: normal capillary refill, pedal edema - Back Exam Back exam: Present: normal inspection, full ROM, tenderness, muscle spasm, paraspinal tenderness (Palpable mid posterior thoracic paraspinal musculoskeletal tenderness) - Neurological Exam Neurological exam: Present: alert, oriented X3, CN II-XII intact, normal gait, reflexes normal - Psychiatric Psychiatric exam: Present: normal affect, normal mood - Skin Skin exam: Present: warm, dry, intact, normal color. Absent: rash ED Course Vital Signs 02/05/19 16:38 Temperature 98.6 F Pulse Rate 89 Respiratory 18 Rate Blood Pressure 126/103 O2 Sat by Pulse 98 Oximetry - Reevaluation(s) Reevaluation #1: 02/05/19 23:54 This is a 49-year-old -[place] female with a history of chronic pain who presented to the ED with anterior chest pain that radiated to the mid posterior thoracic area for 2 hours. Patient also complained of right forearm pain from a recent fracture that is currently splinted. In the ED, the patient is alert and oriented 3 and is not in distress except pain. Lab test results were reviewed and are all unremarkable including troponin levels. EKG shows sinus bradycardia with a ventricular rate of 53 bpm, and no ST or T-wave abnormalities. Patient was treated for pain and on reevaluation, patient's pain is well-controlled with medications. Chest x-ray shows no acute cardiopulmonary abnormalities. Patient was discharged home on pain medications and advised to follow-up with her primary care physician in 5-7 days for reevaluation. 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 02/05/19 23:56 ED Medical Decision Making - Lab Data Result diagrams: 02/05/19 16:57 02/05/19 16:57 - EKG Data EKG shows normal: sinus rhythm Rate: bradycardia - EKG Data Interpretation: normal EKG 02/05/19 23:59 Sinus bradycardia with ventricular rate of 53 bpm; no ST or T wave abnormalities - Radiology Data Radiology results: report reviewed, image reviewed Chest x-ray : No acute cardiopulmonary abnormalities - Medical Decision Making This is a 49-year-old -[place] female with a history of chronic pain who presented to the ED with anterior chest pain that radiated to the mid posterior thoracic area for 2 hours. Patient also complained of right forearm pain from a recent fracture that is currently splinted. In the ED, the patient is alert and oriented 3 and is not in distress except pain. Lab test results were reviewed and are all unremarkable including troponin levels. EKG shows sinus bradycardia with a ventricular rate of 53 bpm, and no ST or T-wave abnormalities. Patient was treated for pain and on reevaluation, patient's pain is well-controlled with medications. Chest x-ray shows no acute cardiopulmonary abnormalities. Patient was discharged home on pain medications and advised to follow-up with her primary care physician in 5-7 days for reevaluation. 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 - Differential Diagnosis chest wall pain, muscle strain chest, costochondritis, muscle spasm of back Critical care attestation.: If time is entered above; I have spent that time in minutes in the direct care of this critically ill patient, excluding procedure time. ED Disposition Clinical Impression: Anterior chest wall pain, Spasm of thoracic back muscle Disposition: TO HOME OR SELFCARE Is pt being admited?: No Does the pt Need Aspirin: No Condition: Stable Instructions: Chest Pain (ED), Costochondritis (ED), Muscle Spasm (ED), Back Pain (ED) Additional Instructions: Take medications with food, drink plenty of fluids and follow up with your primary care physician in 5-7 days for reevaluation. Return to the ED immediately if symptoms get worse. Prescriptions: Naproxen [EC-Naproxen] 500 mg PO Q12H PRN #20 tablet.dr PRN Reason: Pain , Severe (7-10) Acetaminophen/Codeine [Tylenol /Codeine # 3 tab] 1 tab PO Q6H PRN #12 tab PRN Reason: Pain , Severe (7-10) tiZANidine [Zanaflex 4mg TAB] 4 mg PO Q8H PRN #15 tablet PRN Reason: Spasms Referrals: RENETTA DURAN MD [Primary Care Provider] - 3-5 Days Time of Disposition: 23:45 Print Language: KUWAITI
== END 2019-02-06 00:03 | disposition home or self-care (01) ==
LOC: ED 16:11
DX: R07.89 Other chest pain (principal); M62.830 Muscle spasm of back; M79.631 Pain in right forearm; F20.9 Schizophrenia, unspecified; I10 Essential (primary) hypertension; Z91.040 Latex allergy status; Z88.0 Allergy status to penicillin; Z98.84 Bariatric surgery status
CPT/HCPCS: 36415; 71046; 80048; 81001; 84484; 85025; 93005; 93010; 99284

== ENCOUNTER 2019-02-07 03:37 | Emergency (ER) | payer MEDICARE ==
[2019-02-07 04:00] VITALS: BP 126/63
--- NOTE | 2019-02-07 05:16 | XRay Report ---
Right forearm, 2 views INDICATION: Pain, prior fracture FINDINGS: There is evidence of a prior Colles' type fracture of the distal radius which appears to be healed. The radius and ulna are otherwise intact. Signer Name: Nixon Carroll MD Signed: 02/07/2019 5:12 AM Workstation Name: [id number]
--- NOTE | 2019-02-07 05:26 | Emergency Department Report ---
ED Extremity Problem HPI - General Chief complaint: Extremity Injury, Upper Stated complaint: RT ARM PAIN Time Seen by Provider: 02/07/19 04:29 Source: patient Mode of arrival: Ambulatory Limitations: No Limitations - History of Present Illness Initial comments: Patient is a 49-year-old female who is presenting with right arm pain. Patient has a cast on that is very dirty and appears to have maybe gotten wet. Chest is a volar splint however is only on her forearms. Patient has a history of schizophrenia and is actually very in and out of the emergency department waiting room for the last 48 hours. Patient states splint was placed at another hospital and she can give very few details was actually wrong. Patient also has a splint on the left lower extremity which appears to be intact. - Related Data Home Medications Medication Instructions Recorded Confirmed Last Taken Amantadine [Symmetrel] 100 mg PO BID 01/12/17 01/12/17 Unknown Divalproex Sodium [Divalproex 500 mg PO BID 01/12/17 01/12/17 Unknown Sodium ER] Olanzapine [ZyPREXA] 15 mg PO BID 01/12/17 01/12/17 Unknown hydroCHLOROthiazide [HCTZ] 25 mg PO QDAY 01/12/17 01/12/17 Unknown Previous Rx's Medication Instructions Recorded Last Taken Type Ferrous Sulfate [Slow Fe] 142 mg PO BID 30 Days #60 tablet.er 01/31/18 Unknown Rx Famotidine [Pepcid] 20 mg PO BID #60 tablet 08/17/18 Unknown Rx Naproxen 500 mg PO BID PRN #30 tablet 08/17/18 Unknown Rx Acetaminophen/Codeine [Tylenol 1 tab PO Q6H PRN #12 tab 02/05/19 Unknown Rx /Codeine # 3 tab] Naproxen [EC-Naproxen] 500 mg PO Q12H PRN #20 tablet.dr 02/05/19 Unknown Rx tiZANidine [Zanaflex 4mg TAB] 4 mg PO Q8H PRN #15 tablet 02/05/19 Unknown Rx Allergies Allergy/AdvReac Type Severity Reaction Status Date / Time latex Allergy Swelling Verified 08/16/18 14:48 Penicillins Allergy Unknown Verified 08/16/18 14:48 ED Review of Systems ROS: Stated complaint: RT ARM PAIN Other details as noted in HPI Comment: Unobtainable due to pts medical conditions ED Past Medical Hx - Past Medical History Previous Medical History?: Yes Hx Hypertension: Yes Hx Seizures: Yes Hx Psychiatric Treatment: Yes (schizophrenia) - Surgical History Past Surgical History?: Yes Additional Surgical History: Gastric bypass - Social History Smoking Status: Unknown if ever smoked Substance Use Type: None - Medications Home Medications: Home Medications Medication Instructions Recorded Confirmed Last Taken Type Amantadine [Symmetrel] 100 mg PO BID 01/12/17 01/12/17 Unknown History Divalproex Sodium [Divalproex 500 mg PO BID 01/12/17 01/12/17 Unknown History Sodium ER] Olanzapine [ZyPREXA] 15 mg PO BID 01/12/17 01/12/17 Unknown History hydroCHLOROthiazide [HCTZ] 25 mg PO QDAY 01/12/17 01/12/17 Unknown History Ferrous Sulfate [Slow Fe] 142 mg PO BID 30 Days #60 tablet.er 01/31/18 Unknown Rx Famotidine [Pepcid] 20 mg PO BID #60 tablet 08/17/18 Unknown Rx Naproxen 500 mg PO BID PRN #30 tablet 08/17/18 Unknown Rx Acetaminophen/Codeine [Tylenol 1 tab PO Q6H PRN #12 tab 02/05/19 Unknown Rx /Codeine # 3 tab] Naproxen [EC-Naproxen] 500 mg PO Q12H PRN #20 tablet. 02/05/19 Unknown Rx tiZANidine [Zanaflex 4mg TAB] 4 mg PO Q8H PRN #15 tablet 02/05/19 Unknown Rx ED Physical Exam - General Limitations: No Limitations General appearance: alert, in no apparent distress - Head Head exam: Present: atraumatic, normocephalic - Eye Eye exam: Present: normal appearance - ENT ENT exam: Present: mucous membranes moist - Neck Neck exam: Present: normal inspection - Respiratory Respiratory exam: Present: normal lung sounds bilaterally. Absent: respiratory distress, wheezes, rales, rhonchi - Cardiovascular Cardiovascular Exam: Present: regular rate, normal rhythm. Absent: systolic murmur, diastolic murmur, rubs, gallop - GI/Abdominal GI/Abdominal exam: Present: soft, normal bowel sounds. Absent: distended, tenderness, guarding, rebound - Extremities Exam Extremities exam: Present: normal inspection, tenderness (the right wrist) - Back Exam Back exam: Present: normal inspection - Neurological Exam Neurological exam: Present: alert, oriented X3 - Psychiatric Psychiatric exam: Present: normal affect, normal mood - Skin Skin exam: Present: warm, dry, intact, normal color. Absent: rash ED Course Vital Signs 02/07/19 03:52 Temperature 98.2 F Pulse Rate 63 Respiratory 12 Rate Blood Pressure 126/63 O2 Sat by Pulse 97 Oximetry ED Medical Decision Making - Radiology Data [facility] [address] [place] [address] XRay Report Signed Patient: JOCELYNE BEAL MR#: [id number] : 11/29/1969 Acct:[id number] Age/Sex: 49 / F ADM Date: 02/07/19 Loc: ED Attending Dr: Ordering Physician: KENNY MCWILLIAMS MD Date of Service: 02/07/19 Procedure(s): XR forearm RT Accession Number(s): [id number] cc: KENNY MCWILLIAMS MD Fluoro Time In Minutes: Right forearm, 2 views INDICATION: Pain, prior fracture FINDINGS: There is evidence of a prior Colles' type fracture of the distal radius which appears to be healed. The radius and ulna are otherwise intact. Signer Name: Nixon Carroll MD Signed: 02/07/2019 5:12 AM Workstation Name: [id number] Transcribed By: KARRIE Dictated By: Nixon Carroll MD Electronically Authenticated By: Nixon Carroll MD Signed Date/Time: 02/07/19 0512 - Medical Decision Making X-ray shows a healing cold fracture on the right upper extremity, patient is still having pain with pronation supination. Patient placed in a sugar tong splint. Patient's to be seen by social work this morning. Patient states he lives with relatives but is unable to give any additional history for herself. Critical care attestation.: If time is entered above; I have spent that time in minutes in the direct care of this critically ill patient, excluding procedure time. ED Disposition Clinical Impression: Need for follow-up by childcare worker Colles' fracture Qualifiers: Encounter type: subsequent encounter Fracture type: closed Laterality: right Fracture healing: with routine healing Qualified Code(s): S52.531D - Colles' fracture of right radius, subsequent encounter for closed fracture with routine healing Is pt being admited?: No Condition: Stable Referrals: PRIMARY CARE,MD [Primary Care Provider] - 3-5 Days
== END 2019-02-07 10:59 | disposition home or self-care (01) ==
LOC: ED 03:37
DX: S52.531A Colles' fracture of right radius, initial encounter for closed fracture (principal); I10 Essential (primary) hypertension; F20.9 Schizophrenia, unspecified; Z98.890 Other specified postprocedural states; Z79.899 Other long term (current) drug therapy; Z88.0 Allergy status to penicillin; X58.XXXA Exposure to other specified factors, initial encounter; Y93.89 Activity, other specified; Y92.89 Other specified places as the place of occurrence of the external cause; Y99.8 Other external cause status; Z91.040 Latex allergy status
CPT/HCPCS: 99283